=== PATIENT | female | born 1965 | race Caucasian/White ===

== ENCOUNTER 2018-04-15 15:57 | Outpatient (CLI) | payer OTHER | END 2018-04-15 15:58 | disposition home or self-care (01) | LOC: BICMAMMO 15:57 | PROVIDERS: ATTEND Obstetrics & Gynecology | DX: Z12.31 Encounter for screening mammogram for malignant neoplasm of breast (principal); R92.1 Mammographic calcification found on diagnostic imaging of breast | CPT/HCPCS: 77063; 77067 ==

== ENCOUNTER 2021-10-29 09:25 | Inpatient (IN) | payer BC, OTHER ==
[2021-10-29 10:52] LABS: #Lymphocytes 0.9 thou/uL (1.20-3.40); #Monocytes 0.7 thou/uL (0.11-0.59); #Neutrophils 4.4 thou/uL (1.40-6.50); %Basophils 0.6 % (0.0-1.0); %Eosinophils 0.7 % (0.0-10.0); %Lymphocytes 14.7 % (21.0-51.0); %Monocytes 11.1 % (0.0-10.0); %Neutrophils 72.8 % (42.0-75.0); Hemoglobin 13.2 g/dL (12.0-16.0); Mean Corpuscular HGB CONC 33.9 g/dL (32.0-36.0); Mean Corpuscular Hemoglobin 36.7 pg (27.0-31.0); Mean Platelet Volume 7.9 fL (7.4-10.4); Platelet Count 212 thou/uL (130-400); RBC Distribution Width 11.9 % (11.5-14.5); Red Blood Cell (RBC) Count 3.59 mill/uL (4.20-5.40); White Blood Cell (WBC) Count 6.1 thou/uL (4.8-10.8)
[2021-10-29 11:14] LABS: ALT (SGPT) 37 U/L (8-55); AST (SGOT) 44 U/L (5-34); Albumin 4.2 g/dL (3.5-5.0); Alkaline Phosphatase 93 U/L (40-110); Anion Gap 14 mmol/L (10-20); BUN (Urea Nitrogen) 4 mg/dL (9.8-20.1); Bilirubin, Total 0.6 mg/dL (0.2-1.2); Calc. Creatinine Clearance 0 mL/min (70-130); Calcium 8.9 mg/dL (7.8-10.44); Carbon Dioxide 24 mmol/L (22-29); Chloride 102 mmol/L (98-107); Globulin 2.8 g/dL (2.4-3.5); Glucose 107 mg/dL (70-105); Potassium 3.8 mmol/L (3.5-5.1); Sodium 136 mmol/L (136-145)
[2021-10-29 11:28] LABS: MDiff Complete? YES; Macrocytosis SLIGHT = 6-15 cells (100X) (0-5/hpf); Polychromasia SLIGHT = 2-3 cells (100X) (0-2/hpf)
[2021-10-29] MEDS ORDERED: Ondansetron PF 4 MG/2 ML Vial ONE (11:28)
[2021-10-29 14:15] LABS: SARS-CoV-2 NAA Rapid Test Not Detected (NotDetected)
[2021-10-29] MEDS ORDERED: Acetaminophen 325 MG TAB PO PRN (15:40)
[2021-10-29] MEDS ORDERED: HYDROcodone/Acetaminophen 5/325 mg Tablet PO PRN ×2 (15:40)
[2021-10-29] MEDS ORDERED: traMADol HCl 50 MG TAB PO PRN (15:40)
[2021-10-29 15:43] VITALS: BMI 26.6
[2021-10-29] MEDS: Ketorolac Tromethamine 30 MG/ML VIAL IVP SCH ×2 (19:15→22:03)
[2021-10-29] MEDS: Aspirin 81 mg Enteric Coated Tablet PO SCH (21:46)
[2021-10-29] MEDS: traMADol HCl 50 MG TAB PO PRN (23:32)
[2021-10-30] MEDS: Ketorolac Tromethamine 30 MG/ML VIAL IVP SCH ×3 (06:33→17:46)
[2021-10-30] MEDS: Aspirin 81 mg Enteric Coated Tablet PO SCH ×2 (07:37→21:24)
[2021-10-30] MEDS ORDERED: Midazolam HCl 2 mg/2 ml Vial ONE (09:36)
[2021-10-30] MEDS ORDERED: Fentanyl 100 MCG/2 ML VIAL ONE ×2 (09:37→10:04)
[2021-10-30] MEDS ORDERED: ceFAZolin (BATCH) 2 GM/100 ML BAG ONE (10:12)
[2021-10-30] MEDS ORDERED: Ketorolac Tromethamine 30 MG/ML VIAL ONE (10:28)
[2021-10-30] MEDS ORDERED: Ropivacaine 0.5% HCl/PF (150 MG/30 ML VIAL) ONE (10:28)
[2021-10-30] MEDS ORDERED: Ondansetron PF 4 MG/2 ML Vial ONE (10:28)
[2021-10-30] MEDS ORDERED: PROPOFOL 200 MG/20 ML VIAL ONE (10:28)
[2021-10-30] MEDS ORDERED: Dexamethasone 20 MG/5 ML VIAL ONE (10:28)
[2021-10-30] MEDS ORDERED: Lidocaine 1% PF 5 ML VIAL ONE (10:28)
[2021-10-30] MEDS ORDERED: ceFAZolin 2 GM/Dextrose 50 ML 2 GM in Premix Bag 1 BAG IVPB SCH (11:00)
[2021-10-30] MEDS: traMADol HCl 50 MG TAB PO PRN ×2 (15:17→22:59)
[2021-10-31] MEDS: Morphine 4 MG/ML VIAL SLOW IVP PRN ×4 (08:34→16:36)
[2021-10-31] MEDS: Aspirin 81 mg Enteric Coated Tablet PO SCH ×2 (08:43→20:59)
[2021-10-31] MEDS ORDERED: Cyclobenzaprine 10 MG TAB PO PRN (10:09)
[2021-10-31] MEDS ORDERED: Ondansetron ORAL SOLN. 4 MG/5 ML UDCUP PO PRN (10:10)
[2021-10-31] MEDS: Ketorolac Tromethamine 30 MG/ML VIAL IVP SCH ×3 (10:17→23:21)
[2021-10-31] MEDS: traMADol HCl 50 MG TAB PO PRN (20:59)
[2021-11-01] MEDS: Ketorolac Tromethamine 30 MG/ML VIAL IVP SCH ×2 (05:20→10:11)
[2021-11-01] MEDS: Aspirin 81 mg Enteric Coated Tablet PO SCH (07:53)
[2021-11-01 08:32] VITALS: BP 100/64; TEMP 98.3
== END 2021-11-01 11:17 | disposition home or self-care (01) | DRG 517 ==
LOC: ERS 09:25 → ERHOLD 10:20 → T4-B 15:29
PROVIDERS: ADMIT Orthopaedic Surgery; ATTEND Orthopaedic Surgery
PROC: 0QSD04Z Reposition Right Patella with Internal Fixation Device, Open Approach (ICD-10-PCS; principal; 2021-10-30)
DX: S82.091A Other fracture of right patella, initial encounter for closed fracture (principal); Z20.822 Contact with and (suspected) exposure to COVID-19; I10 Essential (primary) hypertension; W01.0XXA Fall on same level from slipping, tripping and stumbling without subsequent striking against object, initial encounter; Z79.899 Other long term (current) drug therapy
CPT/HCPCS: 71045; 76000; 80053; 85025; 93005; 96374; J0690; J1100; J1885; J2250; J2270; J2405; J2704; J2795; J3010; Q0162; U0002